=== PATIENT | female | born 1995 | race American Indian/Alaskan Native ===

== ENCOUNTER 2020-06-26 02:13 | Inpatient (IN) | payer MEDICAID ==
[2020-06-26] MEDS ORDERED: TERBUTALINE 1 MG/1 ML INJ SUB-Q PRN (07:02)
[2020-06-26] MEDS ORDERED: ePHEDrine SULFATE 50 MG/1 ML INJ IV PRN ×2 (07:02→12:30)
[2020-06-26] MEDS ORDERED: LIDOCAINE (2%) 20 MG/1 ML VIAL 20 ML MDV INFILTRATI ONE (07:02)
[2020-06-26] MEDS ORDERED: fentaNYL 100 MCG/2 ML INJ IV PRN (07:02)
--- NOTE | 2020-06-26 07:12 | History and Physical Report ---
History of Present Illness Date of examination: 06/26/20 Date of admission: 06/26/20 02:53 Chief complaint: Contractions History of present illness: 24 year old presents with contractions. Patient denies LOF or VB. Patient received care at [facility] and records are available. LMP 09/03/2019. EDC 07/02/2020 ([place]). significant for the following: trichomonas (pt. had several times and was treated, has been avoiding IC since last treatment), late care, noncompliance with care. labs are as follows: O+, antibody screen negative, rubella immune, hepatitis B surface antigen negative, HIV negative, RPR nonreactive, pap smear negative, chlamydia negative, gonorrhea negative, trichomonas positive, GBS negative, 1 hour sugar test 107. Past History Past Medical History: no pertinent history Past Surgical History: no surgical history [facility] History: trichomonas (treated). denies: abnormal PAP smear, chlamydia, gonorrhea, hepatitis B, herpes, HIV, syphilis Family/Genetic History: diabetes, cancer Social history: lives with family, full code. denies: smoking, alcohol abuse, IV drug use - Obstetrical History Expected Date of Delivery: 07/02/20 Actual Gestation: 39 Week(s) 1 Day(s) : 4 Para: 3 Hx # Term Pregnancies: 3 Number of Pregnancies: 0 Spontaneous Abortions: 0 Induced : 0 Number of Living Children: 3 Medications and Allergies Allergies Allergy/AdvReac Type Severity Reaction Status Date / Time No Known Allergies Allergy Unverified 06/26/20 02:53 Active Meds: Active Medications Ephedrine Sulfate (Ephedrine Sulfate) 10 mg IV Q2M PRN PRN Reason: Hypotension Fentanyl (Sublimaze) 100 mcg IV Q2H PRN PRN Reason: Pain,Severe (7-10) LABOR PAIN Oxytocin/Sodium Chloride (Pitocin/Ns 30 Unit/500ml) 30 units in 500 mls @ 2 mls/hr IV TITR JM; Protocol Lactated Ringer's (Lactated Ringers) 1,000 mls @ 125 mls/hr IV DIRECT JM Lidocaine (Xylocaine 2%) 20 ml INFILTRATI ONCE ONE Stop: 06/26/20 07:03 Terbutaline Sulfate (Brethine) 0.25 mg SUB-Q ONCE PRN PRN Reason: Hyperstimulation/Hypertonicity Review of Systems All systems: negative (contractions) - Vital Signs Vital signs: Vital Signs Temp Pulse Resp BP Pulse Ox 98.1 F 86 18 114/67 97 06/26/20 02:37 06/26/20 02:37 06/26/20 02:37 06/26/20 02:37 06/26/20 02:37 Temp Pulse Resp BP Pulse Ox 98.1 F 80 18 113/69 100 06/26/20 02:37 06/26/20 06:54 06/26/20 02:37 06/26/20 06:54 06/26/20 05:28 - Physical Exam Abdomen: Positive: normal appearance, soft. Negative: distention, tenderness, guarding, rigidity Genitourinary (Female): Positive: normal external genitalia, normal perenium. Negative: perineal/vulvar lesions (no lesions seen on careful exam with bright light upon admission) Vagina: Positive: normal moisture Uterus: Positive: enlarged. Negative: tender Anus/Rectum: Positive: normal perianal skin Extremities: Positive: normal - Obstetrical FHR: category 1 Uterine Contraction Monitor Mode: External Cervical Dilatation: 5 Cervical Effacement Percentage: 60 station: -2 Results All other labs normal. Assessment and Plan A: at 39 weeks, 1 day gestation. Advanced dilation. P: Admit. EFM. Anticipate .
[2020-06-26] MEDS ORDERED: OXYTOCIN DRIP 30 UNITS/500 ML BAG IV SCH (08:00)
[2020-06-26] MEDS: LACTATED RINGERS 1,000 ML IV SCH ×3 (08:30→12:10)
[2020-06-26 08:31] LABS: Hematocrit 29.3 % (30.3-42.9); Hemoglobin 10.1 gm/dl (10.1-14.3); Mean Corpuscular HGB Conc 35 % (30-34); Mean Corpuscular Volume 90 fl (79-97); Platelet Count 205 K/mm3 (140-440); Red Blood Count 3.26 M/mm3 (3.65-5.03)
--- NOTE | 2020-06-26 11:51 | Event Note ---
Date: 06/26/20 SVE -.
[2020-06-26] MEDS ORDERED: NALOXONE 2 MG/2 ML INJ IV PRN (12:30)
--- NOTE | 2020-06-26 12:31 | Anesthesia Consultation ---
Anesthesia Consult and Med Hx Date of service: 06/26/20 - Airway Anesthetic Teeth Evaluation: Good ROM Head & Neck: Adequate Mental/Hyoid Distance: Adequate Mallampati Class: Class II Intubation Access Assessment: Probably Good - Pulmonary Exam CTA: Yes - Cardiac Exam Cardiac Exam: RRR - Pre-Operative Health Status ASA Pre-Surgery Classification: ASA2 Proposed Anesthetic Plan: Epidural - Pulmonary Hx Asthma: No COPD: No Hx Pneumonia: No - Cardiovascular System Hx Hypertension: No - Central Nervous System Hx Seizures: No Hx Psychiatric Problems: No - Endocrine Hx Renal Disease: No Hx End Stage Renal Disease: No Hx Hypothyroidism: No Hx Hyperthyroidism: No - Hematic Hx Anemia: Yes (CURRENT) Hx Sickle Cell Disease: No - Other Systems Hx Alcohol Use: No
--- NOTE | 2020-06-26 12:32 | Progress Note ---
Labor Epidural - Labor Epidural Start Time: 12:14 Stop Time: 12:22 Performed by:: VASU TALBOT Procedure: Patient is requesting epidural for labor pain. H&P, and labs reviewed. Procedure explained, questions answered, consent obtained. Patient in sitting position with blood pressure cuff and pulse ox on and working. Timeout performed immediately before start of procedure. Sterile betadine prep/drape. 3 mL 1% lidocaine skin wheal at L[3]-L[4]. 18-gauge Touhy epidural needle advanced to [id number] with saline at [7] cm. 27-gauge spinal needle advanced until clear, free-flowing CSF. Intrathecal dexmedetomidine [5] mcg administered and needle removed. Epidural catheter advanced to [12] cm, negative aspiration for blood and csf, negative test dose 3 ml 1.5% lidocaine with epinephrine. Sterile steri-strips and tegaderm applied, followed by tape reinforcement. Patient tolerated procedure well.
[2020-06-26] MEDS ORDERED: fentaNYL-BUPIV 2 MCG/ML-0.125% 200 MCG/100 ML BAG EPIDURAL SCH (13:00)
[2020-06-26] MEDS ORDERED: MAGNESIUM HYDROXIDE (MOM) ORAL LIQD UDC PO PRN (14:40)
[2020-06-26] MEDS ORDERED: LANOLIN/ZINC/DIMETHICONE (LANSINOH) 7 GM TP PRN (14:40)
[2020-06-26] MEDS ORDERED: WITCH HAZEL/ GLYCERIN PAD TP PRN (14:40)
--- NOTE | 2020-06-26 14:46 | Procedure Note ---
OB Delivery Note - Delivery Date of Delivery: 06/26/20 Surgeon: AGATHA CARTAGENA Estimated blood loss: 200cc - Vaginal Delivery presentation: vertex Delivery position: OA Intrapartum events: none Delivery induction: none Delivery augmentation: rupture of membranes, pitocin Delivery monitor: external FHT, external uterine Route of delivery: Delivery placenta: spontaneous Delivery cord: nuchal cord, 3 umbilical vessels Episiotomy: none Delivery laceration: none Anesthesia: epidural Delivery comments: Spontaneous vaginal delivery at 14:17 of liveborn male weighing 2.735 kg over intact perineum with apgars of 8/9. Epidural anesthesia. Nuchal cord times 1, manually reduced. Delivery of baby was atraumatic. Baby placed skin to skin with mom immediately after . Spontaneous cry and respirations. Baby suctioned with bulb syringe and dried with warm blankets. 3 vessel cord double clamped and cut after cessation of pulsation. Cord blood obtained. Spontaneous delivery of intact placenta and membranes at 14:25. EBL 200 cc. Pitocin to IV fluids after delivery of placenta. Fundus firm and midline. No lacerations n oted. Vaginal sweep negative. Sponge count correct. Mother and baby stable.
[2020-06-26] MEDS: HYDROcodone/ACETAMINOPHEN 5-325 MG TAB PO PRN ×2 (15:25→21:25)
[2020-06-26] MEDS: IBUPROFEN 600 MG TAB PO SCH (18:45)
--- NOTE | 2020-06-26 20:17 | Post Anesthesia Evaluation ---
- Post Anesthesia Evaluation Patient Participated: Yes Airway Patent: Yes Stable Respiratory Function: Yes Nausea/Vomiting: No Temp > 96.8F: Yes Pain Manageable: Yes Adequeate Hydration: Yes Anesthesia Complications: No Block Receding Appropriately: Yes
[2020-06-26] MEDS: DOCUSATE SODIUM 100 MG CAP PO SCH (21:25)
[2020-06-27] MEDS: IBUPROFEN 600 MG TAB PO SCH ×3 (00:06→16:04)
[2020-06-27] MEDS: HYDROcodone/ACETAMINOPHEN 5-325 MG TAB PO PRN ×2 (05:20→11:40)
[2020-06-27 06:38] LABS: Hematocrit 30.7 % (30.3-42.9); Hemoglobin 10.1 gm/dl (10.1-14.3)
[2020-06-27] MEDS: DOCUSATE SODIUM 100 MG CAP PO SCH (09:56)
--- NOTE | 2020-06-27 13:01 | Progress Note ---
Assessment and Plan A: day 1 S/P . Anemia. P: Discharge patient home later today when baby is able to go. Discussed with patient discharge instructions and warning signs. Advised patient to continue taking her vitamins and iron supplements at home. Advised patient to avoid intercourse, lifting, housework, and driving. Advised patient to follow up at [facility] in 6 weeks for exam. Patient voiced understanding of all instructions. Subjective - Subjective Date of service: 06/27/20 Principal diagnosis: day 1 S/P Interval history: day 1 S/P . Patient requests to be discharged home later today. Patient reports: appetite normal, voiding normally, pain well controlled, flatus, ambulating normally, no dizzy ambulation, no nauseated : doing well, nursing well Objective - Vital Signs Latest vital signs: Vital Signs Temp Pulse Resp BP BP Pulse Ox 06/27/20 11:40 18 06/27/20 09:55 20 06/27/20 08:35 97.9 F 70 18 127/80 93 06/27/20 01:44 98.0 F 56 L 18 115/75 100 06/26/20 21:00 97.8 F 64 18 119/76 06/26/20 18:20 97.9 F 76 20 115/69 100 06/26/20 17:20 61 100 06/26/20 17:15 66 100 06/26/20 17:10 67 118/61 100 06/26/20 17:05 66 98 06/26/20 17:00 66 98 06/26/20 16:55 62 119/66 97 06/26/20 16:52 70 114/62 06/26/20 16:51 98.2 F 60 18 114/62 100 06/26/20 16:50 65 98 06/26/20 16:45 64 97 06/26/20 16:40 63 120/69 99 06/26/20 16:35 60 99 06/26/20 16:30 63 99 06/26/20 16:26 59 L 125/53 06/26/20 16:25 64 99 06/26/20 16:20 61 100 06/26/20 16:15 62 99 06/26/20 16:10 70 99 06/26/20 16:05 63 98 06/26/20 16:01 67 94 06/26/20 16:00 67 96 06/26/20 15:55 69 134/53 98 06/26/20 15:50 77 99 06/26/20 15:45 62 98 06/26/20 15:40 59 L 116/74 99 06/26/20 15:35 65 98 06/26/20 15:30 60 98 06/26/20 15:25 65 110/64 98 06/26/20 15:20 60 98 06/26/20 15:14 62 100 06/26/20 15:10 71 110/73 06/26/20 15:09 68 100 06/26/20 15:04 62 100 06/26/20 14:59 64 100 06/26/20 14:54 61 100 06/26/20 14:49 66 127/63 100 06/26/20 14:44 66 100 06/26/20 14:39 72 100 06/26/20 14:34 64 100 06/26/20 14:29 62 100 06/26/20 14:24 59 L 100 06/26/20 14:19 69 100 06/26/20 14:16 79 89 06/26/20 14:14 74 100 06/26/20 14:09 86 99 06/26/20 14:04 86 100 06/26/20 13:59 76 100 06/26/20 13:56 67 97/55 06/26/20 13:54 73 99 06/26/20 13:49 78 100 06/26/20 13:44 68 99 06/26/20 13:40 66 119/71 06/26/20 13:39 66 99 06/26/20 13:34 71 99 06/26/20 13:29 70 100 06/26/20 13:24 70 110/62 99 06/26/20 13:19 65 99 06/26/20 13:14 64 100 06/26/20 13:11 65 115/57 06/26/20 13:09 73 99 06/26/20 13:04 74 99 06/26/20 12:59 75 99 Intake and Output 06/26/20 06/27/20 06/27/20 23:59 07:59 15:59 Intake Total 360 600 Balance 360 600 Intake: Intake, Free Water 360 600 Other: # Voids Void 2 1 - Exam Cardiovascular: Present: Regular rate, No murmurs Lungs: Present: Clear to auscultation Abdomen: Present: normal appearance, soft. Absent: distention, tenderness, guarding, rigidity Uterus: Present: normal, firm, fundal height below umbilicus. Absent: bogginess, tenderness Extremities: Present: normal. Absent: tenderness, edema
--- NOTE | 2020-06-27 13:05 | Discharge Summary ---
Providers - Providers Date of Admission: 06/26/20 02:53 Date of discharge: 06/27/20 Attending physician: ONEAL RANDOLPH JR, MD Primary care physician: ONEAL RANDOLPH JR, MD Hospitalization Reason for admission: active labor Delivery: Episiotomy: none Laceration: none Other procedures: none complications: none Discharge diagnosis: IUP at term delivered baby: male Pertinent studies: Labs Hospital course: Normal hospital course. Condition at discharge: Good Disposition: DC-01 TO HOME OR SELFCARE - Discharge Diagnoses (1) Term delivered Status: Acute (2) Anemia Status: Acute Plan - Provider Discharge Summary Activity: routine, no sex for 6 weeks, no heavy lifting 4 weeks, no strenuous ex ercise Diet: routine Instructions: routine Additional instructions: Continue taking your vitamins and iron supplements at home. Call your doctor immediately for: * Fever > 100.5 * Heavy vaginal bleeding ( >1 pad per hour) * Severe persistent headache * Shortness of breath * Reddened, hot, painful area to leg or breast - Follow up plan Follow up: ONEAL RANDOLPH JR, MD [Primary Care Provider] - 6 Weeks
[2020-06-27 17:11] VITALS: BP 120/72
== END 2020-06-27 17:00 | disposition home or self-care (01) | DRG 775 ==
LOC: TRG 02:13 → APU 02:30 → TRG 02:53 → LD 02:53 → OBSVTOIN 02:53 → OB 18:32
PROVIDERS: ADMIT Obstetrics & Gynecology; ATTEND Obstetrics & Gynecology
PROC: 10E0XZZ Delivery of Products of Conception, External Approach (ICD-10-PCS; principal; 2020-06-26)
PROC: 3E0R3BZ Introduction of Anesthetic Agent into Spinal Canal, Percutaneous Approach (ICD-10-PCS; 2020-06-26)
PROC: 00HU33Z Insertion of Infusion Device into Spinal Canal, Percutaneous Approach (ICD-10-PCS; 2020-06-26)
DX: O69.81X0 Labor and delivery complicated by cord around neck, without compression, not applicable or unspecified (principal); Z3A.39 39 weeks gestation of pregnancy; Z37.0 Single live birth; O90.81 Anemia of the puerperium; D64.9 Anemia, unspecified; Z20.828 Contact with and (suspected) exposure to other viral communicable diseases
CPT/HCPCS: 36415; 85014; 85018; 85027; 86850; 86900; 86901; G0378; J2590; J7120; U0003